=== PATIENT | male | born 1950 | race Caucasian/White ===

== ENCOUNTER 2017-10-22 18:34 | Inpatient (IN) | payer MEDICARE ==
[~2017-10-22] VITALS: Ht 175.3 cm; Wt 91.0 kg
[2017-10-22 18:57] LABS: BASOPHILS % (AUTO) 0.6 % (0.0-5.0); EOSINOPHILS % (AUTO) 0.5 % (0.0-8.0); HEMATOCRIT 46.1 % (42-54); LYMPHOCYTES % (AUTO) 9.3 % (21.0-51.0); MEAN CORPUSCULAR HEMOGLOBIN 32.8 pg (27.0-33.0); MEAN CORPUSCULAR HGB CONC 35.5 g/dL (32.0-36.0); MEAN CORPUSCULAR VOLUME 92.3 fL (79-99); MONOCYTES % (AUTO) 4.7 % (3.0-13.0); NEUTROPHILS % (AUTO) 84.9 % (40.0-77.0); PLATELET COUNT (AUTO) 211 K/uL (130-400); RED CELL DISTRIBUTION WIDTH 12.3 % (11.0-15.5); WHITE BLOOD COUNT (AUTO) 11.1 K/uL (4.8-10.8)
[2017-10-22] MEDS ORDERED: ONDANSETRON HCL 4 MG/2 ML VIAL ONE (19:00)
[2017-10-22] MEDS ORDERED: MORPHINE SULFATE 4 MG/1ML SYG ONE ×2 (19:01→19:29)
[2017-10-22 19:08] LABS: CREATININE 1.1 mg/dL (0.5-1.5)
[2017-10-22 19:12] LABS: ALBUMIN 4.3 g/dL (3.5-5.0); BILIRUBIN,TOTAL 1.3 mg/dL (0.2-1.0); TOTAL PROTEIN, SERUM 8.3 g/dL (6.0-8.3)
[2017-10-22] MEDS ORDERED: KETOROLAC TROMETHAMINE 15MG/ML ONE (19:29)
[2017-10-23] VITALS (21 sets, daily range): BP systolic 133–189; BP diastolic 68–97
[2017-10-23] MEDS ORDERED: AEC81 PO (01:45)
[2017-10-23] MEDS ORDERED: SODIUM CHLORIDE 0.9% 1000ML 1,000 ML IV SCH (01:45)
[2017-10-23] MEDS ORDERED: MORPHINE SULFATE 2 MG/ML 1ML SYG IVP PRN (02:00)
[2017-10-23] MEDS ORDERED: ONDANSETRON HCL MDV 20ML 2 MG/ML VIAL IVP PRN (02:00)
[2017-10-23] MEDS: UNASYN 3GM+NS 100ML 100 ML IV SCH ×5 (02:00→20:30)
[2017-10-23] MEDS: LACTATED RINGERS 1000ML 1,000 ML IV SCH ×2 (11:54→23:43)
[2017-10-23] MEDS ORDERED: BUPIVACAINE/PF 0.25% 30ML VIAL IJ ONE (18:10)
[2017-10-23] MEDS ORDERED: DEXAMETHASONE SOD PHOSPHATE 10MG/ML 1ML VIAL ONE (19:20)
[2017-10-23] MEDS ORDERED: SUCCINYLCHOLINE 200MG/10ML SYR ONE (19:21)
[2017-10-23] MEDS ORDERED: GLYCOPYRROLATE 0.2 MG/ML 5 ML VIAL ONE (19:21)
[2017-10-23] MEDS ORDERED: LIDOCAINE PF 2% 5ML ABBOJECT ONE (19:21)
[2017-10-23] MEDS ORDERED: NEOSTIGMINE 5MG/5ML SYR IV ONE (19:21)
[2017-10-23] MEDS ORDERED: ONDANSETRON HCL 4 MG/2 ML VIAL ONE (19:21)
[2017-10-23] MEDS ORDERED: PROPOFOL 10 MG/ML 20ML VIAL IV ONE (19:22)
[2017-10-23] MEDS ORDERED: MIDAZOLAM HCL 1 MG/ML 2ML VIAL ONE (19:22)
[2017-10-23] MEDS ORDERED: FENTANYL CITRATE PF 50 MCG/1 ML 2ML VIAL ONE ×3 (19:23→21:13)
[2017-10-23] MEDS ORDERED: LIDOCAINE HCL 4% LTA SOL 4 ML VIAL ONE (19:34)
[2017-10-23] MEDS ORDERED: ISOVUE-370 50ML VIAL IV ONE (19:37)
[2017-10-23] MEDS ORDERED: SUB TO ALBUTEROL 2.5MG/3ML NEBULES PER P&T IH ONE (20:32)
[2017-10-23] MEDS ORDERED: LIDOCAINE HCL 2% JELLY 5 ML ONE (20:49)
[2017-10-23] MEDS ORDERED: ESMOLOL HCL 10 MG/ML 10 ML VIAL ONE (21:00)
[2017-10-23] MEDS ORDERED: MEPERIDINE-PF 25 MG/ML SYG ONE (21:56)
[2017-10-23] MEDS ORDERED: HYDRALAZINE HCL 20 MG/ML VIAL ONE (22:22)
[2017-10-24] VITALS (11 sets, daily range): BP systolic 137–168; BP diastolic 63–101
[2017-10-24] MEDS ORDERED: ACETAMINOPHEN 325 MG TAB PO PRN (00:45)
[2017-10-24] MEDS ORDERED: TRAMADOL HCL 50 MG TABLET PO PRN (00:45)
[2017-10-24] MEDS: UNASYN 3GM+NS 100ML 100 ML IV SCH ×4 (01:58→20:06)
[2017-10-24] MEDS: LACTATED RINGERS 1000ML 1,000 ML IV SCH ×5 (03:00→16:45)
[2017-10-24] MEDS: DOCUSATE SODIUM 100 MG CAP PO SCH ×2 (08:28→20:07)
== END 2017-10-24 21:22 | disposition home or self-care (01) | DRG 419 ==
LOC: EDH 18:34 → 3DH 10-23 00:22
PROVIDERS: ADMIT Surgery; ATTEND Surgery
PROC: BF121ZZ Fluoroscopy of Gallbladder using Low Osmolar Contrast (ICD-10-PCS; 2017-10-23)
PROC: 0FT44ZZ Resection of Gallbladder, Percutaneous Endoscopic Approach (ICD-10-PCS; principal; 2017-10-23 20:30)
DX: K81.0 Acute cholecystitis (principal); Z80.0 Family history of malignant neoplasm of digestive organs; Z87.891 Personal history of nicotine dependence
CPT/HCPCS: 36415; 48400; 74176; 76705; 80053; 84484; 85025; 88304; 93005; C1758; J0295; J0330; J0360; J1100; J1885; J2001; J2175; J2250; J2270; J2405; J2704; J2710; J3010; J3490; J7030; J7120; Q9967

== ENCOUNTER 2022-04-24 17:31 | Emergency (ER) | payer MEDICARE ==
[~2022-04-24] VITALS: Ht 175.3 cm; Wt 84.8 kg
[~2022-04-24 17:31] MED LIST: AEC81 PO
[2022-04-24 18:18] LABS: BASOPHILS % (AUTO) 0.5 % (0.0-5.0); EOSINOPHILS % (AUTO) 8.4 % (0.0-8.0); HEMATOCRIT 44.1 % (42-54); LYMPHOCYTES % (AUTO) 18.1 % (21.0-51.0); MEAN CORPUSCULAR HEMOGLOBIN 33.2 pg (27.0-33.0); MEAN CORPUSCULAR HGB CONC 37.4 g/dL (32.0-36.0); MEAN CORPUSCULAR VOLUME 88.7 fL (79-99); MONOCYTES % (AUTO) 6.5 % (3.0-13.0); NEUTROPHILS % (AUTO) 66.2 % (40.0-77.0); PLATELET COUNT (AUTO) 233 K/uL (130-400); RED BLOOD CELL COUNT(AUTO) 4.97 MIL/uL (4.50-6.20); WHITE BLOOD COUNT (AUTO) 9.2 K/uL (4.8-10.8)
[2022-04-24] MEDS ORDERED: CEFTRIAXONE 1G VIAL IVP ONE (18:30)
[2022-04-24] MEDS ORDERED: 0.9%NACL 1000ML 1,000 ML IV ONE (18:30)
[2022-04-24 18:35] LABS: CREATININE 1.2 mg/dL (0.5-1.5); POTASSIUM 3.6 mmol/L (3.5-5.1)
[2022-04-24 18:40] LABS: ALBUMIN 4.2 g/dL (3.5-5.0); TOTAL PROTEIN, SERUM 8.3 g/dL (6.0-8.3)
[2022-04-24] MEDS ORDERED: IOHEXOL 350 MG/ML 100ML INFUS..BTL IV ONE (18:51)
[2022-04-24 20:21] LABS: APPEARANCE,URINE CLEAR (CLEAR); BILIRUBIN,URINE NEGATIVE (NEGATIVE); COLOR,URINE COLORLESS (YELLOW); GLUCOSE, URINE (UA) NEGATIVE (NEGATIVE); KETONES,URINE 10 mg/dL (NEGATIVE); LEUKOCYTE ESTERASE ,URINE NEGATIVE Leu/uL (NEGATIVE); NITRATE,URINE NEGATIVE (NEGATIVE); OCCULT BLOOD,URINE NEGATIVE (NEGATIVE); PROTEIN,URINE NEGATIVE (NEGATIVE); UROBILINOGEN,URINE 0.2 mg/dL (0.2-1.0)
[2022-04-24 20:22] VITALS: BP 145/88
== END 2022-04-24 21:01 | disposition home or self-care (01) ==
LOC: EDH 17:31
DX: R10.9 Unspecified abdominal pain (principal); I10 Essential (primary) hypertension; Z90.49 Acquired absence of other specified parts of digestive tract
CPT/HCPCS: 99285; 74177; 96374; 80053; 85025; 83605; 81003; 36415; J7030; J0696; Q9967

== ENCOUNTER → 2023-10-22 | Outpatient (CLI) | payer MEDICARE ==
[~2023-10-22] MED LIST changes: +IOHEXOL 350 MG/ML 100ML INFUS..BTL IV ONE
== END | disposition home or self-care (01) ==
LOC: RAH 10:00
PROVIDERS: ATTEND Internal Medicine Gastroenterology
DX: C78.7 Secondary malignant neoplasm of liver and intrahepatic bile duct (principal); C20 Malignant neoplasm of rectum
CPT/HCPCS: 74178; Q9967